=== PATIENT | male | born 1995 | race African-American/Black ===

== ENCOUNTER 2021-12-26 15:39 | Emergency (ER) | payer BC, SELFPAY ==
[2021-12-26 15:40] VITALS: BP 156/95; PULSE 69; RESP 18; TEMP 36.9; O2SAT 99; BMI 19.5
--- NOTE | 2021-12-26 15:53 | RAD_ITS ---
INDICATION: hand pain EXAMINATION/TECHNIQUE: X-RAY - RIGHT XR Hand Min 3 Views 3 VIEWS COMPARISON: None. FINDINGS: SOFT TISSUES: No soft tissue swelling or gas. No radiopaque foreign body. BONES/JOINTS: No acute fracture or subluxation.. Normal alignment. Preservation of the joint space.. No sclerotic or destructive changes observed. RAD/Hand Min 3 Views IMPRESSION: No evidence of acute osseous abnormality Electronically Signed: Wyatt Ledezma MD at 16:18 EDT ,
--- NOTE | 2021-12-26 16:07 | EDS_ITS ---
HPI <SANDER Johnson - Last Filed: 12/26/21 16:29> History of Present Illness Chief Complaint: Upper Extremity Injury Narrative Narrative: 26-year-old male with no significant medical history presents to the emergency department with complaints of right hand pain. Patient states that 2 weeks ago a piece of wood fell on his hand, it continues to hurt when he opens it and closes it, he is here for evaluation. Patient states he did not punch anything, patient denies any other injury. Patient is right-hand dominant. PFSH <SANDER Johnson - Last Filed: 12/26/21 16:29> PFSH Allergy/AdvReac Type Severity Reaction Status Date / Time No Known Allergies Allergy Verified 12/26/21 15:41 Social History Smoking Status: Never smoker ROS <SANDER Johnson - Last Filed: 12/26/21 16:29> ROS ED ROS Narrative Constitutional: Negative for fever, chills, weight loss, weakness Eyes: Negative for vision loss, vision change, double vision ENT: Negative for any sore throat, ear pain, congestion Cardiovascular: Negative for any chest pain, tightness, palpitations, racing heartbeat Respiratory: Negative for any cough, sputum production, hemoptysis, shortness of breath, shortness of breath on exertion, orthopnea Gastrointestinal: Negative for any abdominal pain, nausea, vomiting, diarrhea, constipation, blood in stool, blood in vomit : Negative for any urinary frequency, incontinence, dysuria, retention, blood in urine Muscle skeletal: Negative for any muscle joint pain, stiffness, myalgias, arthralgias, neck pain, back pain. Positive right hand pain Neurological: Negative for any headache, dizziness, syncope, numbness or tingling Skin: Negative for any rashes, lumps, itching, abrasions, lacerations Psychiatric: Negative for any depression, anxiety, stress, suicidal ideation, homicidal ideation Hematologic: Negative for any easy bruising, excessive bruising, easy bleeding Allergies: Negative for any eczema, hives, rash EXAM <SANDER Johnson - Last Filed: 12/26/21 16:29> Physical Exam Narrative Exam Narrative: Vital signs reviewed. Extremities: No peripheral edema, no signs of gross trauma or deformity. Active full range of motion of all extremities. Patient's right hand shows no signs or symptoms of trauma, patient is able to flex and extend the fingers against resistance. +2 radial pulse. Patient has some tenderness along the fourth and fifth metacarpal however there is no instability. Neuro: Cranial nerves II through XII intact, no focal neurological deficits. Skin: Clean dry and intact with no rash, purpura, petechiae, vesicles or pustules. Backslash flank: No CVA tenderness, no midline spinal tenderness, no deformity. Psych: Normal mood and affect. No SI, HI or acute psychosis. Const Vital Signs: 12/26/21 15:40 Temperature 98.5 F Temperature Source Temporal Pulse Rate 69 Respiratory Rate 18 Blood Pressure 156/95 H Blood Pressure Mean 115 Pulse Ox 99 Oxygen Delivery Method Room Air Positive well nourished and well developed General Appearance ED: well developed [facility] <SANDER Johnson - Last Filed: 12/26/21 16:29> [employer] Narrative Medical decision making narrative: Patient appears well, patient appears nontoxic, vital signs are stable. Patient presents the emergency department with 2 weeks of right hand pain after a piece of wood fell on it. Patient's physical examination was grossly unremarkable, there is no external signs of trauma. Patient did receive x-rays of the right hand, this was negative for any acute osseous abnormality. The patient will continue take ibuprofen, Tylenol, to continue to ice and elevate. He is instructed to follow-up as needed. Patient stable for discharge <Dr. Dimitris Dutton DO - Last Filed: 12/26/21 22:45> [employer] Narrative Medical decision making narrative: Attending note: Patient seen and evaluated with clinical research management associate. I perform my own [id number] evaluation. I agree with the plan of work-up. [id number] blunt injury to ring finger right hand 2 weeks ago no from a piece of wood. Swelling has improved. States currently mild pain with movement. Presented for x-ray to rule out fracture. Exam with mild swelling at the proximal phalanx of the ring finger skin intact no deformities full range of motion. Right hand x-ray reviewed by myself and read by radiology shows no acute process. Reassured discharge with outpatient follow-up as needed. Discharge Plan Triage Chief Complaint: Upper Extremity Injury ED Midlevel Provider: Jose Eldridge ED Provider: Dimitris Dutton Dx/Rx/DC Orders Clinical Impression: Hand joint pain, Contusion of finger of right hand Instructions: ED Contusion, Upper Extremity Primary Care Provider: Care Physician,No Primary Referrals: Frankie Anthony MD [STAFF PHYSICIAN] - Care Physician,No Primary [Primary Care Provider] - Print Language: Lebanese Disposition Disposition: Home, Self Care Discharge Date/Time: 12/26/21 16:32
== END 2021-12-26 16:32 | disposition home or self-care (01) ==
PROVIDERS: Emergency Provider Emergency Medicine; Visit Provider Emergency Medicine
DX: M25.541 Pain in joints of right hand (principal); S60.041A Contusion of right ring finger without damage to nail, initial encounter; X58.XXXA Exposure to other specified factors, initial encounter
CPT/HCPCS: 73130; 99282

== ENCOUNTER 2024-03-21 17:45 | Emergency (ER) | payer BC, SELFPAY ==
[2024-03-21 17:46] VITALS: BP 132/93; PULSE 82; RESP 16; TEMP 36.6; O2SAT 95
[2024-03-21 17:48] VITALS: BMI 17.8
[2024-03-21 18:52] LABS: Absolute Lymphocyte Count 1.27 X10^3/uL (0.83-4.51); Absolute Neutrophil Count 3.4 X10^3/uL (2.0-7.7); Basophil# 0.01 X10^3/uL; Basophil% 0.2 % (0-1); Eosinophil# 0.08 X10^3/uL; Eosinophils% 1.5 % (0-5); Hematocrit 39.6 % (40-54); Hemoglobin 12.8 g/dL (13.0-16.5); Lymphocyte # 1.27 X10^3/ul (0.83-4.51); Lymphocyte % 23.4 % (19-41); Mean Corp Hgb Conc 32.3 g/dL (32-36); Mean Corpuscular Hgb 24.4 pg (27.0-32.0); Mean Corpuscular Volume 75.6 fL (80-94); Mean Platelet Vol. 10.5 fl (6.2-12.0); Monocyte# 0.66 X10^3/uL; Monocyte% 12.2 % (0-10); NRBC Flagged by Analyzer 0 % (0-5); Neutrophil # 3.38 X10^3/uL (2.7-7.7); Neutrophil % 62.3 % (47-70); Platelet Count 221 K/mm3 (150-450); RBC Distribution Width CV 14.7 % (11.6-14.6); RBC Distribution Width SD 40.3 fl (35.1-43.9); Red Blood Count 5.24 M/mm3 (4.6-6.2); White Blood Count 5.4 K/mm3 (4.4-11.0)
[2024-03-21 19:03] LABS: Lipase 19 U/L (13-75)
[2024-03-21 19:15] LABS: ALB/GLOB Ratio 1.2 RATIO (0.9-2.4); AST(SGOT) 21 U/L (15-37); Alanine Aminotransfer ALT/SGPT 23 U/L (16-61); Albumin, Serum 3.8 g/dL (3.2-5.0); Alkaline Phosphatase 66 U/L (45-117); Anion Gap 6 (5-15); BUN 14 mg/dL (7-18); BUN/Creat Ratio 13.9 RATIO (10-20); Chloride 103 mmol/L (98-107); Creatinine, Serum 1.01 mg/dL (0.70-1.30); EST Glomerular Filtration Rate 93 mL/min (>60); Est Glom Filt Rate - Afr Amer 113 mL/min (>60); Estimated Creatinine Clearance 86.86 ml/min; Globulin 3.3 g/dL (2.2-4.2); Glucose 90 mg/dL (74-106); Potassium 3.6 mmol/L (3.5-5.1); Protein, Total 7.1 g/dL (6.4-8.2); Sodium Level 137 mmol/L (136-145)
[2024-03-21 19:30] LABS: Bacteria 0 SEEN /hpf (None Seen); Mucous, Urine 0 SEEN /hpf (<or=2+); Red Blood Cells-Urine 0 SEEN /hpf (0-5); Squamous Epithelial Cells - UA 0 SEEN /hpf (0-5); White Blood Cells 0 SEEN /hpf (0-5)
[2024-03-21 19:42] LABS: Color, Urine Yellow (Yellow); Glucose, Dipstick Normal (Normal); Ketone-Dipstick 15 mg/dl (Negative); Leukocyte Esterase-Dipstick 25 /ul (Negative); Nitrite-Dipstick Negative (Negative); Occult Blood-Urine Negative /ul (Negative); Protein-Dipstick 15 mg/dl (Negative); Specific Gravity, Urine 1.005 (1.002-1.030); Urine Clarity Clear (Clear); Urine Urobilinogen 4 mg/dl (Normal)
[2024-03-21 19:45] VITALS: BP 123/82; O2SAT 100
[2024-03-21 19:52] LABS: Urine Bilirubin Dipstick 1 mg/dL (Negative)
[2024-03-21] MEDS: Ondansetron 4 MG/2 ML Vial IV (19:56)
[2024-03-21 21:00] VITALS: BP 125/84; PULSE 89; RESP 18; O2SAT 100
--- NOTE | 2024-03-21 21:26 | ED.VIS.GI ---
HPI HPI - GI History of Present Illness Chief Complaint: Nausea/Vomiting/Diarrhea Narrative Narrative: 28-year-old male presenting with nausea, vomiting, diarrhea which started overnight. Patient does not had a fever at home. He states is not sure why he is vomiting. He states yesterday he had a smoothie and 2 peanut butter sandwiches. He did eat anything out of the ordinary. No exotic travel or eating. He states he does smoke marijuana but is never had problems with vomiting secondary to the marijuana use. He denies any abdominal pain. He denies urinary complaints. He denies cough, congestion, shortness of breath. He denies chills or bodyaches. PFSH PFSH Medical History no medical history Home Medications ?Medication ?Instructions ?Recorded ?Last Taken ?Type ondansetron 4 mg disintegrating 4 mg PO Q8H PRN PRN Nausea #14 tabs 03/21/24 Unknown Rx tablet Allergy/AdvReac Type Severity Reaction Status Date / Time No Known Allergies Allergy Verified 03/21/24 18:53 Surgical History no surgical history Social History Smoking Status: Never smoker [facility] ED Constitutional Constitutional ED: Denies chills, fever(s) or sweats Eyes Eyes: Denies blurry vision or change in vision ENT ENT ED: Denies ear pain or sore throat Cardiovascular Cardiovascular: Denies chest pain, palpitations or racing heartbeat Respiratory/Chest Respiratory/Chest: Denies cough, dyspnea or sputum Gastrointestinal Gastrointestinal: Reports diarrhea, nausea and vomiting; Denies abdominal pain or constipation Genitourinary Genitourinary ED: Denies dysuria, hematuria or urinary frequency Musculoskeletal Musculoskeletal: Denies arthralgias, myalgias or neck pain Integumentary Denies abscess, Abrasions or rash Neurologic Neurologic: Denies headache(s), paresthesias or weakness Psychiatric Psychiatric: Denies anxiety, depression, suicidal ideation or suicidal thoughts Endocrine Endocrinology: Denies polydipsia or polyuria EXAM Physical Exam Const Vital Signs: 03/21/24 17:46 03/21/24 19:45 03/21/24 21:00 Temperature 97.8 F Temperature Source Temporal Pulse Rate 82 89 Respiratory Rate 16 18 Blood Pressure 132/93 H 123/82 H 125/84 H Blood Pressure Mean 106 95 97 Pulse Ox 95 100 100 Oxygen Delivery Method Room Air Room Air Positive well nourished General Appearance ED: NAD; Negative for pallor HEENT Reports moist mucous membranes normocephalic and atraumatic Eyes PERRL and EOMs intact bilaterally Resp normal respiratory effort and clear to auscultation bilaterally Auscultation: Negative for rales, rhonchi or wheezes Cardio regular rate and regular rhythm GI non-tender, non-distended and no masses Palpation: soft Extremity full ROM Neuro CN's II-XII intact bilaterally Sensorium / Orientation: alert Psych mental status grossly normal and thought process normal Skin no wounds General Skin Exam: Negative for jaundice or pallor MDM MDM MDM Narrative Medical decision making narrative: 28-year-old male presenting with nausea, vomiting, diarrhea. He has no other symptoms. Differential includes viral gastroenteritis, dehydration, anemia, electrolyte abnormalities, UTI, pancreatitis, gastritis, GERD, colitis. IV was established. Patient given Zofran 4 mg IV. CBC shows normal white blood cell count of 5.4. Hemoglobin 12.8. Platelets are normal at 221. Renal function and electrolytes within normal limits. LFTs are normal. Lipase is negative. Urinalysis negative for infection. Patient was able to pass a p.o. challenge and feels much better. I will fill a prescription for Zofran for him. The hospital via meds to beds. Discharged in stable condition. Impression: 1. Viral gastroenteritis Lab Data Attestation: I reviewed the patient's lab results. Labs: Laboratory Results - last 24 hr 03/21/24 03/21/24 18:35 19:25 WBC 5.4 RBC 5.24 Hgb 12.8 L Hct 39.6 L MCV 75.6 L MCH 24.4 L MCHC 32.3 RDW Std Deviation 40.3 RDW Coeff of Brian 14.7 H Plt Count 221 MPV 10.5 Immature Gran % (Auto) 0.400 Neut % (Auto) 62.3 Lymph % (Auto) 23.4 [place] % (Auto) 12.2 H Eos % (Auto) 1.5 Baso % (Auto) 0.2 Absolute Neuts (auto) 3.4 Absolute Lymphs (auto) 1.27 Nucleated RBC % 0 Sodium 137 Potassium 3.6 Chloride 103 Carbon Dioxide 28.0 Anion Gap 6 BUN 14 Creatinine 1.01 Estim Creat Clear Calc 86.86 Est GFR (MDRD) Af Amer 113 Est GFR (MDRD) Non-Af 93 BUN/Creatinine Ratio 13.9 Glucose 90 Calcium 9.0 Total Bilirubin 0.60 AST 21 ALT 23 Alkaline Phosphatase 66 Total Protein 7.1 Albumin 3.8 Globulin 3.3 Albumin/Globulin Ratio 1.2 Lipase 19 Urine Color Yellow Urine Clarity Clear Urine pH 7.0 Ur Specific [place] 1.005 Urine Protein 15 H Urine Glucose (UA) Normal Urine Ketones 15 H Urine Occult Blood Negative Urine Nitrite Negative Urine Bilirubin 1 H Urine Urobilinogen 4 H Ur Leukocyte Esterase 25 H Urine RBC 0 SEEN Urine WBC 0 SEEN Ur Squamous Epith Cells 0 SEEN Urine Bacteria 0 SEEN Urine Mucus 0 SEEN Discharge Plan Triage Chief Complaint: Nausea/Vomiting/Diarrhea ED Provider: Ryan Prince Dx/Rx/DC Orders Instructions: ED Gastroenteritis, Viral (Adult) Prescriptions: New ondansetron 4 mg tablet,disintegrating 4 mg PO Q8H PRN PRN (Reason: Nausea) Qty: 14 0RF Stand Alone Forms: ED Work / School Excuse Primary Care Provider: Care Physician,No Primary Referrals: Ines Clark [facility] [Provider Group] - 3-5 Days Care Physician,No Primary [Primary Care Provider] - Print Language: Bulgarian Disposition Disposition: Home, Self Care
[2024-03-21 21:32] VITALS: BP 132/89; PULSE 52; RESP 18; TEMP 36.6; O2SAT 100
== END 2024-03-21 22:15 | disposition home or self-care (01) ==
PROVIDERS: Emergency Provider Student in an Organized Health Care Education/Training Program; Visit Provider Student in an Organized Health Care Education/Training Program
DX: A08.4 Viral intestinal infection, unspecified (principal); F12.90 Cannabis use, unspecified, uncomplicated
CPT/HCPCS: 80053; 81001; 83690; 85025; 96374; 96376; 99283; A4216; J2405

== ENCOUNTER 2024-05-27 08:29 | Emergency (ER) | payer BC, SELFPAY ==
[2024-05-27 08:30] VITALS: BP 122/89; PULSE 69; RESP 16; TEMP 36.7; O2SAT 91; BMI 19.1
--- NOTE | 2024-05-27 08:58 | RAD_ITS ---
STUDY: X-RAY - RIGHT HAND REASON FOR EXAM: Male, 28 years old. 3 week history of pain along the fifth digit. TECHNIQUE: 3 view(s) of the hand. COMPARISON: Comparison is made with prior study dated December 26, 2021. FINDINGS: Normal radiocarpal articulation. Normal distal radioulnar joint. Normal visualized carpal bones. Normal carpal articulations Normal carpometacarpal articulation of the thumb. Normal second through fifth carpometacarpal joints. Normal metacarpi. Normal metacarpophalangeal joint of the thumb. Normal interphalangeal joint of the thumb. Normal proximal and distal phalanges of the thumb. Normal metacarpophalangeal joints of the second through fifth fingers. Normal proximal and distal interphalangeal joints of the second through fifth fingers. Normal phalanges of the second through fifth fingers. The soft tissue structures are unremarkable. RAD/Hand Min 3 Views IMPRESSION: Normal x-ray examination of the hand. Electronically Signed: Harvinder Jose MD at 9:09 EDT ,
--- NOTE | 2024-05-27 09:00 | EX.ED.UPPERE ---
HPI History of Present Illness HPI Narrative: Right hand injury versus dog cage 2 to 3 weeks ago. Complaining of discomfort to the right small finger MCP. No prior history or surgery to this hand. No other complaints. Chief Complaint: Upper Extremity Injury Informant: patient Occured/Mechanism Mechanism/Context: Yes injury and Yes blunt trauma Onset/Context/Timing Onset: Weeks Context: Sudden Onset Timing: Continuous Quality of Pain: Dull and Aching Current Severity: Mild Maximum Severity: Mild Narrative Narrative: Healthy 28-year-old male [id number] injured his right hand versus a dog cage 2 to 3 weeks ago. Still has some discomfort once it x-rayed. No other complaints. Prior similar symptoms: No Recent Illness/Hospitalization: No PFSH PFSH Medical History no medical history no medical history Home Medications ?Medication ?Instructions ?Recorded ?Last Taken ?Type ondansetron 4 mg disintegrating 4 mg PO Q8H PRN PRN Nausea #14 tabs 03/21/24 Unknown Rx tablet Allergy/AdvReac Type Severity Reaction Status Date / Time No Known Allergies Allergy Verified 05/27/24 08:30 Surgical History no surgical history no surgical history Social History Smoking Status: Never smoker ROS ROS ED ROS Narrative Denies recent illness. Constitutional Constitutional ED: Denies fever(s) Eyes Eyes: Denies blurry vision ENT ENT ED: Denies ear pain Cardiovascular Cardiovascular: Denies chest pain Respiratory/Chest Respiratory/Chest: Denies cough Gastrointestinal Gastrointestinal: Denies abdominal pain Genitourinary Genitourinary ED: Denies dysuria Musculoskeletal Musculoskeletal: Denies back pain Integumentary Denies abscess Neurologic Neurologic: Denies headache(s) Psychiatric Psychiatric: Denies anxiety Endocrine Endocrinology: Denies cold intolerance Hematologic/Lymphatic Hematologic/Lymphatic: Denies easy bleeding Allergic/Immunologic Allergic/Immunologic ED: Denies mouth swelling EXAM Physical Exam Narrative Exam Narrative: Well-appearing male vital signs stable afebrile. H EENT exam unremarkable. Lungs clear. Heart regular rate and rhythm no murmur rate about 70. Chest wall ribs nontender. Abdomen soft nontender. Back nontender. Moving all 4 extremities. Neurovascular intact. Specifically right hand mild tenderness MCP right small finger. Full flexion extension all digits of the hand. Skin intact. Very mild tenderness and swelling. At the MCP of the small finger. No infection. No laceration. Wrist and forearm nontender. Otherwise exam normal. Const Vital Signs: 05/27/24 08:30 Temperature 98.1 F Temperature Source Temporal Pulse Rate 69 Respiratory Rate 16 Blood Pressure 122/89 H Blood Pressure Mean 100 Pulse Ox 91 Oxygen Delivery Method Room Air Positive well nourished and well developed; Negative for obese, cachectic, contractures or unkempt General Appearance ED: well developed and NAD; Negative for unkempt, cachectic, contractures, cyanotic or diaphoretic Nutritional Appearance: Negative for cachectic or obese HEENT Reports moist mucous membranes normocephalic and atraumatic; Negative for trauma or tenderness Eyes PERRL and EOMs intact bilaterally Neck full ROM and supple General: Negative for tenderness Lymph Lymphatic: Negative for other Chest Wall inspection of chest normal and palpation of chest normal Chest: Negative for other Resp normal respiratory effort and clear to auscultation bilaterally Effort and Inspection: Negative for pain with movement Auscultation: Negative for rales, rhonchi, wheezes or diminished lung sounds Cardio regular rate, regular rhythm, S1 normal heart sound, S2 normal heart sound and no murmurs Rate: Negative for bradycardia or tachycardic Rhythm: Negative for abnormal rhythm GI non-tender, non-distended and no masses Inspection: Negative for abdominal distention Auscultation: normoactive bowel sounds Palpation: soft; Negative for tender, guarding or rebound tenderness present Back/Spine no CVA tenderness General Back: Negative for CVA tenderness Cervical Spine: Negative for cervical spine tenderness Thoracic Spine / Upper Back: Negative for thoracic spinal tenderness Lumbar Spine / Lower Back: Negative for lumbar spinal tenderness Extremity normal to inspection and full ROM Extremity Narrative: Mild tenderness right hand MCP of the small finger. Full flexion extension. No deformity. Skin intact. Neuro oriented x3, CN's II-XII intact bilaterally, moves all extremities and no focal motor deficits Sensorium / Orientation: alert, oriented to person, oriented to place and oriented to time Motor Exam: strength 5/5 throughout Psych mental status grossly normal Appearance: Negative for unkempt Attitude: No agitated Mood & Affect: Negative for depressed or anxious Skin General Skin Exam: Negative for petechiae Lesions: no lesions Rashes: no rashes Trauma: no lacerations or abrasions MDM MDM MDM Narrative Medical decision making narrative: 28-year-old [id number] male injured his hand 2 to 3 weeks ago getting an x-ray. Exam benign. Normal range of motion. No infection. He did not want a thing for pain. Repeat exam at 915 unchanged. We went over his x-ray is normal. He will be discharged home. Treated as a right hand contusion. Ice and elevate. History & Record Review Discussion w/independent historian: Patient Radiography Diagnostic Testing: Right hand x-ray, 3 views, interpreted by myself shows no acute abnormality. No fracture or dislocation. Discharge Plan Triage Chief Complaint: Upper Extremity Injury ED Provider: Patrick Rivas Dx/Rx/DC Orders Clinical Impression: Contusion of hand Instructions: ED Hand Contusion Prescriptions: No Action ondansetron 4 mg tablet,disintegrating 4 mg PO Q8H PRN PRN (Reason: Nausea) Qty: 14 0RF Primary Care Provider: Care Physician,No Primary Referrals: Care Physician,No Primary [Primary Care Provider] - Activity Restrictions/Additional Instructions: X-ray looks good. Ice and elevate the hand. Motrin for pain and swelling and Tylenol for pain. Should progressively get better if not follow-up to have it reevaluated. Print Language: Croatian Disposition Disposition: Home, Self Care
[2024-05-27 09:19] VITALS: BP 130/57; PULSE 75; RESP 16; TEMP 36.3; O2SAT 97
== END 2024-05-27 09:20 | disposition home or self-care (01) ==
LOC: ED 09:16
PROVIDERS: Emergency Provider Emergency Medicine; Visit Provider Emergency Medicine
DX: S60.221A Contusion of right hand, initial encounter (principal); X58.XXXA Exposure to other specified factors, initial encounter
CPT/HCPCS: 73130; 99282

== ENCOUNTER 2025-04-09 12:51 | Emergency (ER) | payer SELFPAY ==
[2025-04-09 12:51] VITALS: BP 123/81; PULSE 58; RESP 16; TEMP 36.8; O2SAT 100; BMI 18.2
--- OUTSIDE RECORDS SUMMARY | 2025-04-09 14:48 | XMS RPT_ITS | CCD ---
Author Organization [facility] Care Team Providers Care Pipe Fitter Marine Name Role Phone Care Physician, No Primary Primary Care Unava moiraable Patrick Rivas Attending Unavailable Care Physician, No Primary Primary Care Unava ilable Ryan Prince Attending Unavailable Care Physician, No Primary Primary Care Unava ilable Karan Johansen Attending Unavailable Care Physician, No Primary Referring Unava ilable Care Physician, No Primary Referring Unava ilable Care Physician, No Primary Primary Care Tammyva Karan Thompson Attending Unavailable Problems Active Problems Problem Classification Problem Date Documented Da te Episodic/Chronic Administrative/social admission (1 source) Encounter for pre-employment examination; Translations: [Encounter for pre-employment examination] Onset: 11-07-2024 Episodic Other non-traumatic joint disorders (1 source) Hand joint pain; Translations: [Pain in joints of unspecified hand] Episodic Past or Other Problems Problem Classification Problem Date Documented Da te Episodic/Chronic Nausea and vomiting (1 source) Nausea with vomiting, unspecified; Translations: [Nausea with vomiting, unspecified] Onset: 04-06-2024 Episodic Other injuries and conditions due to external causes (1 source) Unspecified injury of right wrist, hand and finger(s), initial encounter; Translations: [Unspecified injury of right wrist, hand and finger(s), initial encounter] Onset: 06-20-2024 Episodic Results Test Name Value Interpretation Reference Range Facility Office Visit Reporton 2024 Office Visit Report [facility] [address] [place] [address] OFFICE VISIT Date of Service: 11/01/24 MR#: [id number] Acct: [id number] Patient: BENY MARCUS Rep #: [id number] : 1995 Provider: SORAYA Horn Age/Sex: 29/M Location: [facility] Status: Signed Intake Vital Signs 05/27/24 08:30 Height 5 ft 10 in Intake Visit Reasons: [employer] Allergies No Known Allergies Allergy (Verified 05/27/24 08:30) Office Procedures [facility] Billing Sheet Testing Breath Alcohol Test Pre-Employment: Yes Pre-Employment Drug Screen: Yes Pre-Employment PE: Yes 11/02/24 1409 Date Karan LIRA Cosigner Signature: Date (if applicable) CC: Normal [facility] Urgent Care Visit Reporton 0 11-01-2024 Urgent Care Visit Report [facility] [address], [address] [place] [address] OFFICE VISIT Date of Service: 11/01/24 MR#: [id number] Acct: [id number] Name: BENY MARCUS Rep #: [id number] : 1995 Provider: SORAYA Horn Age/Sex: 29/M Location: [facility] Status: Signed Intake Vital Signs 05/27/24 08:30 Height 5 ft 10 in Weight: 133 lb BMI 19.1 BP 122/89 H Respiration 16 Pulse 69 Temp 98.1 F Temp Source Temporal Pulse Oximetry (%) 91 Intake Visit Reasons: NEW - [employer] Allergies No Known Allergies Allergy (Verified 05/27/24 08:30) [facility] Medical History (Updated 11/01/24 @ 12:22 by Karan LIRA PA) Physical exam, pre-employment Social History Smoking Status: Never smoker HPI HPI Details: BENY MARCUS, is a 29 M who presents to the office today for Office Procedures Physical Exam Coding PE Coding Pre-employment PE: Yes Coding Level of Care Code No Charge Diagnoses Physical exam, pre-employment Z02.1 Assessment and Plan Assessment and Plan (1) Physical exam, pre-employment: Status: Acute 11/01/24 1223 Date Karan Castellon Signature: Date (if applicable) CC: Normal [facility] Emergency Department Summary on 05-27-2024 Emergency Department Summary [facility] Medical Records Department [address] [place] [address] Emergency Department Summary 05/27/24 MR#: [id number] Acct: [id number] Name: BENY MARCUS Rep #: [id number] : 1995 28 From: Patrick Rivas MD PCP: Care Physician,No Primary Status:PRE ER Location: ED HPI History of Present Illness HPI Narrative: Right hand injury versus dog cage 2 to 3 weeks ago. Complaining of discomfort to the right small finger MCP. No prior history or surgery to this hand. No other complaints. Chief Complaint: Upper Extremity Injury Informant: patient Occured/Mechanism Mechanism/Context: Yes injury and Yes blunt trauma Onset/Context/Timing Onset: Weeks Context: Sudden Onset Timing: Continuous Quality of Pain: Dull and Aching Current Severity: Mild Maximum Severity: Mild Narrative Narrative: Healthy 28-year-old male [id number] injured his right hand versus a dog cage 2 to 3 weeks ago. Still has some discomfort once it x-rayed. No other complaints. Prior similar symptoms: No Recent Illness/Hospitalization: No PFSH PFSH Medical History no medical history no medical history Home Medications ???Medication ???Instructions ???Recorded ???Last Taken ???Type ondansetron 4 mg disintegrating 4 mg PO Q8H PRN PRN Nausea #14 tabs 03/21/24 Unknown Rx tablet Allergy/AdvReac Type Severity Reaction Status Date / Time No Known Allergies Allergy Verified 05/27/24 08:30 Surgical History no surgical history no surgical history Social History Smoking Status: Never smoker ROS ROS ED ROS Narrative Denies recent illness. Constitutional Constitutional ED: Denies fever(s) Eyes Eyes: Denies blurry vision ENT ENT ED: Denies ear pain Cardiovascular Cardiovascular: Denies chest pain Respiratory/Chest Respiratory/Chest: Denies cough Gastrointestinal Gastrointestinal: Denies abdominal pain Genitourinary Genitourinary ED: Denies dysuria Musculoskeletal Musculoskeletal: Denies back pain Integumentary Denies abscess Neurologic Neurologic: Denies headache(s) Psychiatric Psychiatric: Denies anxiety Endocrine Endocrinology: Denies cold intolerance Hematologic/Lymphatic Hematologic/Lymphatic: Denies easy bleeding Allergic/Immunologic Allergic/Immunologic ED: Denies mouth swelling EXAM Physical Exam Narrative Exam Narrative: Well-appearing male vital signs stable afebrile. H EENT exam unremarkable. Lungs clear. Heart regular rate and rhythm no murmur rate about 70. Chest wall ribs nontender. Abdomen soft nontender. Back nontender. Moving all 4 extremities. Neurovascular intact. Specifically right hand mild tenderness MCP right small finger. Full flexion extension all digits of the hand. Skin intact. Very mild tenderness and swelling. At the MCP of the small finger. No infection. No laceration. Wrist and forearm nontender. Otherwise exam normal. Const Vital Signs: 05/27/24 08:30 Temperature 98.1 F Temperature Source Temporal Pulse Rate 69 Respiratory Rate 16 Blood Pressure 122/89 H Blood Pressure Mean 100 Pulse Ox 91 Oxygen Delivery Method Room Air Positive well nourished and well developed; Negative for obese, cachectic, contractures or unkempt General Appearance ED: well developed and NAD; Negative for unkempt, cachectic, contractures, cyanotic or diaphoretic Nutritional Appearance: Negative for cachectic or obese HEENT Reports moist mucous membranes normocephalic and atraumatic; Negative for trauma or tenderness Eyes PERRL and EOMs intact bilaterally Neck full ROM and supple General: Negative for tenderness Lymph Lymphatic: Negative for other Chest Wall inspection of chest normal and palpation of chest normal Chest: Negative for other Resp normal respiratory effort and clear to auscultation bilaterally Effort and Inspection: Negative for pain with movement Auscultation: Negative for rales, rhonchi, wheezes or diminished lung sounds Cardio regular rate, regular rhythm, S1 normal heart sound, S2 normal heart sound and no murmurs Rate: Negative for bradycardia or tachycardic Rhythm: Negative for abnormal rhythm GI non-tender, non-distended and no masses Inspection: Negative for abdominal distention Auscultation: normoactive bowel sounds Palpation: soft; Negative for tender, guarding or rebound tenderness present Back/Spine no CVA tenderness General Back: Negative for CVA tenderness Cervical Spine: Negative for cervical spine tenderness Thoracic Spine / Upper Back: Negative for thoracic spinal tenderness Lumbar Spine / Lower Back: Negative for lumbar spinal tenderness Extremity normal to inspection and full ROM Extremity Narrative: Mild tenderness right hand MCP of the small finger. Fu (more content not included)... Normal [facility] Hand Min 3 Viewson 4 Hand Min 3 Views [facility] Imaging Services [address] [place], [place] [id number] Hand Min 3 Views MR#: [id number] Acct: [id number] Name: BENY MARCUS Rep #: [id number] : 1995 M 28 From: Harvinder garzon MD PCP: Care Physician,No Primary Status: PRE ER Study: Hand Min 3 Views Date of Exam: 05/27/24 Exam# [id number] Ordering Dr: Patrick Rivas MD [id number] STUDY: X-RAY - RIGHT HAND REASON FOR EXAM: Male, 28 years old. 3 week history of pain along the fifth digit. TECHNIQUE: 3 view(s) of the hand. COMPARISON: Comparison is made with prior study dated December 26, 2021. FINDINGS: Normal radiocarpal articulation. Normal distal radioulnar joint. Normal visualized carpal bones. Normal carpal articulations Normal carpometacarpal articulation of the thumb. Normal second through fifth carpometacarpal joints. Normal metacarpi. Normal metacarpophalangeal joint of the thumb. Normal interphalangeal joint of the thumb. Normal proximal and distal phalanges of the thumb. Normal metacarpophalangeal joints of the second through fifth fingers. Normal proximal and distal interphalangeal joints of the second through fifth fingers. Normal phalanges of the second through fifth fingers. The soft tissue structures are unremarkable. RAD/Hand Min 3 Views IMPRESSION: Normal x-ray examination of the hand. Electronically Signed: Harvinder Jose MD at 9:09 EDT , CC: Dr. Patrick Rivas MD; No Primary Care Physician Swimming Pool Maintenance: Signed Normal [facility] CBC W/Diff, Automatedon 03-07 Absolute Lymph 1.27 X10 3/uL Normal 0.83-4.51 [facility] Comment on above: Performed By: #### L 500.4050, L100.0100 #### [facility] [address] [place], [address] Absolute Neut 3.4 X10 3/uL Normal 2.0-7.7 [facility] Comment on above: Performed By: #### L 500.4050, L100.0100 #### [facility] [address] [place], [address] Basophils/100 WBC (Bld) 0.2 % Normal 0-1 [facility] Comment on above: Performed By: #### L 500.4050, L100.0100 #### [facility] [address] [place], [address] Eosinophils/100 WBC (Bld) 1.5 % Normal 0-5 [facility] Comment on above: Performed By: #### L 500.4050, L100.0100 #### [facility] [address] [place], [address] Erythrocyte distribution width (RBC) [Ratio] 14.7 % High 11.6-14.6 [facility] Comment on above: Performed By: #### L 500.4050, L100.0100 #### [facility] [address] [place], [address] Hematocrit (Bld) [Volume fraction] 39.6 % Low 40-54 [facility] Comment on above: Performed By: #### L 500.4050, L100.0100 #### [facility] [address] [place], [address] Hemoglobin (Bld) [Mass/Vol] 12.8 g/dL Low 13.0-16.5 [facility] Comment on above: Performed By: #### L 500.4050, L100.0100 #### [facility] [address] [place], [address] IG% 0.400 Normal 0.0-0.9 [facility] Comment on above: Result Comment: IG% - Immature Granulocytes (promyelocytes, myelocytes and metamyelocytes) > 1% indicates that a LEFT SHIFT is Present. Performed By: #### L 500.4050, L100.0100 #### [facility] [address] [place], [address] Lymphocytes/100 WBC (Bld) 23.4 % Normal 19-41 [facility] Comment on above: Performed By: #### L 500.4050, L100.0100 #### [facility] [address] [place], [address] MCH (RBC) [Entitic mass] 24.4 pg Low 27.0-32.0 [facility] Comment on above: Performed By: #### L 500.4050, L100.0100 #### [facility] [address] [place], [address] MCHC (RBC) [Mass/Vol] 32.3 g/dL Normal 32-36 [facility] Comment on above: Performed By: #### L 500.4050, L100.0100 #### [facility] [address] [place], [address] MCV (RBC) [Entitic vol] 75.6 fL Low 80-94 [facility] Comment on above: Performed By: #### L 500.4050, L100.0100 #### [facility] [address] [place], [address] Monocytes/100 WBC (Bld) 12.2 % High 0-10 [facility] Comment on above: Performed By: #### L 500.4050, L100.0100 #### [facility] [address] [place], [address] Neutrophils/100 WBC (Bld) 62.3 % Normal 47-70 [facility] Comment on above: Performed By: #### L 500.4050, L100.0100 #### [facility] [address] [place], [address] Nucleated RBC (Bld) [#/Vol] 0 10*3/uL Normal 0-5 [facility] Comment on above: Performed By: #### L 500.4050, L100.0100 #### [facility] [address] [place], [address] Platelet mean volume (Bld) [Entitic vol] 10.5 fL Normal 6.2-12.0 [facility] Comment on above: Performed By: #### L 500.4050, L100.0100 #### [facility] [address] [place], [address] Platelets (Bld) [#/Vol] 221 10*3/uL Normal 150-450 [facility] Comment on above: Performed By: #### L 500.4050, L100.0100 #### [facility] [address] [place], [address] RBC (Bld) [#/Vol] 5.24 10*6/uL Normal 4.6-6.2 [facility] Comment on above: Performed By: #### L 500.4050, L100.0100 #### [facility] [address] [place], [address] RDW SD 40.3 fl Normal 35.1-43.9 [facility] Comment on above: Performed By: #### L 500.4050, L100.0100 #### [facility] [address] [place], [address] WBC (Bld) [#/Vol] 5.4 10*3/uL Normal 4.4-11.0 [facility] Comment on above: Performed By: #### L 500.4050, L100.0100 #### [facility] [address] [place], [address] Comprehensive Metabolic [facility] 03-21-2024 Albumin [Mass/Vol] 3.8 g/dL Normal 3.2-5.0 [facility] Comment on above: Performed By: #### L 500.4050, L100.0100 #### [facility] [address] [place], [address] Albumin/Globulin [Mass ratio] 1.2 {ratio} Normal 0.9-2.4 [facility] Comment on above: Performed By: #### L 500.4050, L100.0100 #### [facility] [address] [place], [address] ALK P 66 U/L Normal 45-117 [facility] Comment on above: Performed By: #### L 500.4050, L100.0100 #### [facility] [address] [place], [address] ALT [Catalytic activity/Vol] 23 U/L Normal 16-61 [facility] Comment on above: Performed By: #### L 500.4050, L100.0100 #### [facility] [address] [place], [address] AST [Catalytic activity/Vol] 21 U/L Normal 15-37 [facility] Comment on above: Performed By: #### L 500.4050, L100.0100 #### [facility] [address] [place], [address] Bilirubin [Mass/Vol] 0.60 mg/dL Normal 0.20-1.00 [facility] Comment on above: Result Comment: For patients on eltrombopag therapy, use of Dimension [place] TBIL is not recommended. Performed By: #### L 500.4050, L100.0100 #### [facility] [address] [place], [address] BUN/CRE 13.9 RATIO Normal 10-20 [facility] Comment on above: Performed By: #### L 500.4050, L100.0100 #### [facility] [address] [place], [address] CA,Total 9.0 mg/dL Normal 8.5-10.1 [facility] Comment on above: Performed By: #### L 500.4050, L100.0100 #### [facility] [address] [place], [address] Chloride [Moles/Vol] 103 mmol/L Normal 98-107 [facility] Comment on above: Performed By: #### L 500.4050, L100.0100 #### [facility] [address] [place], [address] CO2 [Moles/Vol] 28.0 mmol/L Normal 21.0-32.0 [facility] Comment on above: Performed By: #### L 500.4050, L100.0100 #### [facility] [address] [place], [address] Creatinine [Mass/Vol] 1.01 mg/dL Normal 0.70-1.30 [facility] Comment on above: Result Comment: The validity of the calculated GFR GFRAA in patients over 70 years has not been determined. Clinical correlation is essential. Performed By: #### L 500.4050, L100.0100 #### [facility] [address] [place], [address] ECRCL 86.86 ml/min Normal [facility] Comment on above: Performed By: #### L 500.4050, L100.0100 #### [facility] [address] [place], [address] EST GFR - AA 113 mL/min Normal >60 [facility] Comment on above: Result Comment: Afri can Lebanese GFR Calc Performed By: #### L 500.4050, L100.0100 #### [facility] [address] [place], [address] GAP 6 Normal 5-15 [facility] Comment on above: Performed By: #### L 500.4050, L100.0100 #### [facility] [address] [place], [address] GFR/1.73 sq M.predicted among non-blacks MDRD (S/P/Bld) [Vol rate/Area] 93 mL/min/{1.73_m2} Normal >60 [facility] Comment on above: Result Comment: Non- GFR Calc Performed By: #### L 500.4050, L100.0100 #### [facility] [address] [place], [address] Globulin (S) [Mass/Vol] 3.3 g/dL Normal 2.2-4.2 [facility] Comment on above: Performed By: #### L 500.4050, L100.0100 #### [facility] [address] [place], [address] Glucose [Mass/Vol] 90 mg/dL Normal 74-106 [facility] Comment on above: Performed By: #### L 500.4050, L100.0100 #### [facility] [address] [place], [address] Potassium [Moles/Vol] 3.6 mmol/L Normal 3.5-5.1 [facility] Comment on above: Performed By: #### L 500.4050, L100.0100 #### [facility] [address] [place], [address] Sodium [Moles/Vol] 137 mmol/L Normal 136-145 [facility] Comment on above: Performed By: #### L 500.4050, L100.0100 #### [facility] [address] [place], [address] T PROT 7.1 g/dL Normal 6.4-8.2 [facility] Comment on above: Performed By: #### L 500.4050, L100.0100 #### [facility] [address] [place], [address] Urea nitrogen [Mass/Vol] 14 mg/dL Normal 7-18 [facility] Comment on above: Performed By: #### L 500.4050, L100.0100 #### [facility] [address] [place], [address] Emergency Department Summary on 03-21-2024 Emergency Department Summary [facility] Records Department [address] [place] [address] Emergency Department Summary 03/21/24 MR#: [id number] Acct: [id number] Name: BENY MARCUS Rep #: [id number] : 1995 28 From: Ryan Prince DO PCP: Care Physician,No Primary Status:REG ER Location: ED HPI HPI - GI History of Present Illness Chief Complaint: Nausea/Vomiting/Diarrhea Narrative Narrative: 28-year-old male presenting with nausea, vomiting, diarrhea which started overnight. Patient does not had a fever at home. He states is not sure why he is vomiting. He states yesterday he had a smoothie and 2 peanut butter sandwiches. He did eat anything out of the ordinary. No exotic travel or eating. He states he does smoke marijuana but is never had problems with vomiting secondary to the marijuana use. He denies any abdominal pain. He denies urinary complaints. He denies cough, congestion, shortness of breath. He denies chills or bodyaches. PFSH PFS Medical History no medical history Home Medications ???Medication ???Instructions ???Recorded ???Last Taken ???Type ondansetron 4 mg disintegrating 4 mg PO Q8H PRN PRN Nausea #14 tabs 03/21/24 Unknown Rx tablet Allergy/AdvReac Type Severity Reaction Status Date / Time No Known Allergies Allergy Verified 03/21/24 18:53 Surgical History no surgical history Social History Smoking Status: Never smoker ROS ROS ED Constitutional Constitutional ED: Denies chills, fever(s) or sweats Eyes Eyes: Denies blurry vision or change in vision ENT ENT ED: Denies ear pain or sore throat Cardiovascular Cardiovascular: Denies chest pain, palpitations or racing heartbeat Respiratory/Chest Respiratory/Chest: Denies cough, dyspnea or sputum Gastrointestinal Gastrointestinal: Reports diarrhea, nausea and vomiting; Denies abdominal pain or constipation Genitourinary Genitourinary ED: Denies dysuria, hematuria or urinary frequency Musculoskeletal Musculoskeletal: Denies arthralgias, myalgias or neck pain Integumentary Denies abscess, Abrasions or rash Neurologic Neurologic: Denies headache(s), paresthesias or weakness Psychiatric Psychiatric: Denies anxiety, depression, suicidal ideation or suicidal thoughts Endocrine Endocrinology: Denies polydipsia or polyuria EXAM Physical Exam Const Vital Signs: 03/21/24 17:46 03/21/24 19:45 03/21/24 21:00 Temperature 97.8 F Temperature Source Temporal Pulse Rate 82 89 Respiratory Rate 16 18 Blood Pressure 132/93 H 123/82 H 125/84 H Blood Pressure Mean 106 95 97 Pulse Ox 95 100 100 Oxygen Delivery Method Room Air Room Air Positive well nourished General Appearance ED: NAD; Negative for pallor HEENT Reports moist mucous membranes normocephalic and atraumatic Eyes PERRL and EOMs intact bilaterally Resp normal respiratory effort and clear to auscultation bilaterally Auscultation: Negative for rales, rhonchi or wheezes Cardio regular rate and regular rhythm GI non-tender, non-distended and no masses Palpation: soft Extremity full ROM Neuro CN's II-XII intact bilaterally Sensorium / Orientation: alert Psych mental status grossly normal and thought process normal Skin no wounds General Skin Exam: Negative for jaundice or pallor MDM MDM MDM Narrative Medical decision making narrative: 28-year-old male presenting with nausea, vomiting, diarrhea. He has no other symptoms. Differential includes viral gastroenteritis, dehydration, anemia, electrolyte abnormalities, UTI, pancreatitis, gastritis, GERD, colitis. IV was established. Patient given Zofran 4 mg IV. CBC shows normal white blood cell count of 5.4. Hemoglobin 12.8. Platelets are normal at 221. Renal function and electrolytes within normal limits. LFTs are normal. Lipase is negative. Urinalysis negative for infection. Patient was able to pass a p.o. challenge and feels much better. I will fill a prescription for Zofran for him. The hospital via meds to beds. Discharged in stable condition. Impression: 1. Viral gastroenteritis Lab Data Attestation: I reviewed the patient's lab results. Labs: Laboratory Results - last 24 hr 03/21/24 03/21/24 18:35 19:25 WBC 5.4 RBC 5.24 Hgb 12.8 L Hct 39.6 L MCV 75.6 L MCH 24.4 L MCHC 32.3 RDW Std Deviation 40.3 RDW Coeff of Brian 14.7 H Plt Count 221 MPV 10.5 Immature Gran % (Auto) 0.400 Neut % (Auto) 62.3 Lymph % (Auto) 23.4 Barbour % (Auto) 12.2 H Eos % (Auto) 1.5 Baso % (Auto) 0.2 Absolute Neuts (auto) 3.4 Absolute Lymphs (auto) 1.27 Nucleated RBC % 0 Sodium 137 Potassium 3.6 Chloride 103 Carbon Dioxide 28.0 Anion Gap 6 BUN 14 Creatinine 1.01 (more content not included)... Normal [facility] Lipaseon 03-21-2024 Lipase [Catalytic activity/Vol] 19 U/L Normal 13-75 [facility] Comment on above: Result Comment: Hunter asencio note: LIPASE revised reference range effective 22. New Lipase methodology. Expected to produce lower values than the previous assay method. NEW Reference Range: 13 - 75 U/L Performed By: #### L 501.2450 #### [facility] [address] [place], [address] Urinalysis, Completeon 03-21 BACTERIA 0 SEEN Normal None Seen [facility] Comment on above: Order Comment: IVY CTOR TO SPECIFY Performed By: #### L 400.0001 #### [facility] [address] [place], [address] EPI,SQUAMOUS 0 SEEN Normal 0-5 [facility] Comment on above: Order Comment: IVY CTOR TO SPECIFY Performed By: #### L 400.0001 #### [facility] [address] [place], [address] Mucus Ql (Urine sed) 0 SEEN Normal [facility] Comment on above: Order Comment: IVY CTOR TO SPECIFY Performed By: #### L 400.0001 #### [facility] [address] [place], [address] RBC 0 SEEN Normal 0-5 [facility] Comment on above: Order Comment: IVY CTOR TO SPECIFY Performed By: #### L 400.0001 #### [facility] [address] [place], [address] WBC 0 SEEN Normal 0-5 [facility] Comment on above: Order Comment: IVY CTOR TO SPECIFY Performed By: #### L 400.0001 #### [facility] [address] [place], [address] CTPCRon 09-13-2018 C. trachomatis Interp See CT Interp N [facility] ([place]) Comment on above: Result Comment: DNA detection by non-culture technique (PCR). Sensitivity testing not available with this method. This organism causes a reportable disease [facility] Interp P Performed By: #### C TPCR, NGPCR1 #### [address] [address] C.trachomatis PCR Positive Negative [facility] ([place]) Comment on above: Result Comment: Yovany acosta (PCR) assay performed on the Jason Cindy 4800 system. Performed By: #### C TPCR, NGPCR1 #### [address] [address] Chlam Source Urine Normal [facility] ([place]) Comment on above: Performed By: #### C TPCR, NGPCR1 #### [address] [address] NGPCRon 09-13-2018 GC PCR Source Urine Normal [facility] ([place]) Comment on above: Performed By: #### C TPCR, NGPCR1 #### [address] [address] N. gonorrhoeae (PCR) Positive Negative [facility] ([place]) Comment on above: Result Comment: Yovany douglasar (PCR) assay performed on the Jason Cindy 4800 System. Performed By: #### C TPCR, NGPCR1 #### [address] [address] N. gonorrhoeae Interp See NG Interp N [facility] ([place]) Comment on above: Result Comment: DNA detection by non-culture technique (PCR). Sensitivity testing not available with this method. This organism causes a reportable disease [facility] See NG Interp P Performed By: #### C TPCR, NGPCR1 #### [address] [address] .Urinalysis Microscopic (AO) on 09-11-2018 RBC (U) [#/Vol] None Seen Normal None Seen [facility] ([place]) Comment on above: Performed By: #### U A, UAMICAO #### [address] [address] UA Squam Epithelial None Seen Normal None Seen [facility] ([place]) Comment on above: Performed By: #### U A, UAMICAO #### [place] [address] UA WBC 15-25 None Seen [facility] ([place]) Comment on above: Performed By: #### U A, UAMICAO #### [address] [address] UAon 09-11-2018 Color (U) Yellow Normal [facility] ([place]) Comment on above: Performed By: #### U A, UAMICAO #### [place] [address] Glucose (U) [Mass/Vol] Negative Normal Negative [facility] ([place]) Comment on above: Performed By: #### U A, UAMICAO #### [place] [address] Ketones Ql (U) Negative Normal Negative [facility] ([place]) Comment on above: Performed By: #### U A, UAMICAO #### [place] [address] UA Appear Clear Normal Clear [facility] ([place] Comment on above: Performed By: #### U A, UAMICAO #### [place] [address] UA Blood Negative Normal Negative [facility] ([place] Comment on above: Performed By: #### U A, UAMICAO #### [place] [address] UA Leuk Est Moderate Negative [facility] ([place]) Comment on above: Performed By: #### U A, UAMICAO #### [place] [id number] UA Nitrite Negative Normal Negative [facility] ([place] Comment on above: Performed By: #### U A, UAMICAO #### [place] [address] UA pH 6.5 Normal [facility] ([place] Comment on above: Performed By: #### U A, UAMICAO #### [place] [address] UA Protein Negative Normal Negative [facility] ([place] Comment on above: Performed By: #### U A, UAMICAO #### [place] [address] UA Spec Grav 1.005 [facility] ([place] Comment on above: Performed By: #### U A, UAMICAO #### [place] [address] UA Specimen Type Clean Catch Normal [facility] ([place] Comment on above: Performed By: #### U A, UAMICAO #### [place] [address] UA Urobilinogen 0.2 E.U./dL Normal [facility] ([place]) Comment on above: Performed By: #### U A, UAMICAO #### [place] [address] Urobilinogen Qn (U) Negative Normal Negative [facility] ([place]) Comment on above: Performed By: #### U A, UAMICAO #### [place] [address] US SCROTUM CONTENTSon 2018 US SCROTUM CONTENTS ORIGINAL US SCROTUM CONTENTS with Duplex Doppler evaluation CLINICAL STATEMENT: Scrotal Pain COMPARISON: None FINDINGS: The size and echogenicity of the testicles are within normal limits and similar bilaterally. No focal nor diffuse abnormalities are seen. Color Doppler flow is seen in both testicles in a symmetric fashion. Spectral waveform analysis of the testicles shows low resistance arterial waveforms on both sides. The right epididymis is mildly prominent compared to the left side with hyperemia. IMPRESSION: Right epididymitis, without orchitis. I have personally reviewed the images of this examination and agree with the resident's findings and interpretation. Interpreted By: Jacinto Flores MD Preliminary Report By: Lee Conte DO Electronically Signed By: Jacinto Flores MD Dictated Date: 09/10/2018 11:07:50 PM Prelim Date: 09/10/2018 11:13:08 PM Sign Date: 09/11/2018 12:04:39 AM Normal [facility] ([place]) Vital Signs Date Time Vital Sign Value Performing Clinician Moises ignacio 12-26-2021 15:40-0400 Body height 180.[address] [facility] Work Phone: 12-26-2021 15:40-0400 Body mass index (BMI) [Ratio] 19.5 kg/m2 [facility] Work Phone: 12-26-2021 15:40-0400 Body temperature 98.5 [degF] [facility] Work Phone: 12-26-2021 15:40-0400 Body weight 63.[address] [facility] Work Phone: 12-26-2021 15:40-0400 Diastolic blood pressure 95 mm[Hg] [facility] Work Phone: 12-26-2021 15:40-0400 Heart rate 69 /min [facility] Work Phone: 12-26-2021 15:40-0400 Respiratory rate 18 /min [facility] Work Phone: 12-26-2021 15:40-0400 SaO2% (BldA) [Mass fraction] 99 % [facility] Work Phone: 12-26-2021 15:40-0400 Systolic blood pressure 156 mm[Hg] [facility] Work Phone: Encounters Encounter Date Encounter Type Care Provider Facility Start: 11-01-2024 End: 11-01-2024 ambulatory No Primary Care Physician Facility:[facility] Start: 05-27-2024 End: 05-27-2024 Emergency department patient visit No Primary Care Physician Facility:[facility] Start: 03-21-2024 End: 03-21-2024 Emergency department patient visit No Primary Care Physician Facility:[facility] Start: 12-26-2021 End: 12-26-2021 Emergency department patient visit [facility] Procedures Date Procedure Procedure Detail Performing Clinician Start: 12-26-2021 Plain x-ray of hand Plan of Treatment Date Care Activity Detail Author Patient Education ED Contusion, Upper Ext remity [facility] Work Phone: Patient referral [facility] Work Phone: Payers Date Payer Category Payer Self-pay [id number] 2024 Unknown [id number] Medicaid SELF PAY INSURANCE [id number] 599 [id number] Unknown SELF PAY INSURANCE [id number] Unknown [id number] Unknown [id number] Unknown [id number] Unknown [id number] Social History Date Type Detail Facility Start: 12-26-[address] [facility] Unknown if ever smoked [facility] Work Phone: Start: 1995 Sex Assigned At Male [facility] Work Phone: Evaluation note Note Date & Type Note Facility Evaluation note No assessment information availa ble [facility] Work Phone: Summary Purpose Family History No Family History Records FoundNo Family History Records Found Advance Directives No Advanced Directives Records Found Advance Directive Response Recorded Date/ Time Living Will No December 26, 2021 3:45pm Power of Instrument Tech No December 26 3:45pm Chief Complaint and Reason for Visit Chief Complaint RIGHT HAND PAIN Additional Source Comments (unrecognized sect ion and content) No Status Records FoundNo Status Records Found INFORMATION SOURCE (unrecogn ized section and content) DATE CREATED AUTHOR 07/31/2019 [facility] ([place]) DATE CREATED AUTHOR AUTHOR'S JASMINE NEGRO 11/10/2024 [facility] Goals (unrecognized section and content) Goals may be documented in a n alternate section FOR RECORDS PERTAINING TO PATIENTS WHO ARE OR HAVE BEEN ENROLLED IN A CHEMICAL DEPENDENCY/SUBSTANCEABUSE PROGRAM, SOME INFORMATION MAY BE OMITTED. This clinical summary was aggregated from multiple sources. Caution should be exercised in using it in the provision of clinical care. This summary normalizes information from multiple sources, and as a consequence, information in this document may materially change the coding, format and clinical context of patient data. In addition, data may be omitted in some cases. CLINICAL DECISIONS SHOULD BE BASED ON THE PRIMARY CLINICAL RECORDS. [facility]. provides no warranty or guarantee of the accuracy or completeness of information in this document.
== END 2025-04-09 14:37 | disposition left against medical advice (07) ==
LOC: ED 14:46
DX: Z00.00 Encounter for general adult medical examination without abnormal findings (principal)

== ENCOUNTER 2025-09-06 10:45 | Emergency (ER) | payer SELFPAY ==
[2025-09-06 10:46] VITALS: BP 131/89; PULSE 80; RESP 18; TEMP 36.9; O2SAT 100; BMI 18.2
--- NOTE | 2025-09-06 11:14 | RAD_ITS ---
PROCEDURE: CHEST 1 VIEW (PORTABLE) 09/06/2025 REASON FOR EXAM: COUGH TECHNIQUE: Frontal view of the chest. COMPARISON: None. FINDINGS: LUNGS AND PLEURA: The lungs are clear. No pleural effusion or pneumothorax. HEART AND MEDIASTINUM: The heart size and mediastinal contours are normal. BONES: No acute osseous abnormality. RAD/Chest 1 View (Portable) IMPRESSION: No Acute Findings. Reading Location: [id number]
--- NOTE | 2025-09-06 11:15 | EX.ED.DYSGE1 ---
HPI History of Present Illness Chief Complaint: Nausea/Vomiting Informant: patient and family Narrative Narrative: 30-year-old male presenting to the emergency room with hiccups and vomiting. Patient states that he has been diagnosed with influenza A. He got sick on Thursday. He states yesterday he had vomiting and has developed hiccups. He denies any muscle cramps. He notes occasional nausea. He notes continued cough and fevers. He notes decreased urination. [facility] Medical History Physical exam, pre-employment Home Medications ?Medication ?Instructions ?Recorded ?Last Taken ?Type ondansetron 4 mg disintegrating 4 mg PO Q8H PRN PRN Nausea #14 tabs 03/21/24 Unknown Rx tablet ondansetron 4 mg disintegrating 4 mg PO Q6H PRN PRN Nausea #15 tabs 09/06/25 Unknown Rx tablet Allergy/AdvReac Type Severity Reaction Status Date / Time No Known Allergies Allergy Verified 09/06/25 10:46 Social History Smoking Status: Never smoker ROS ROS ED Constitutional Constitutional ED: Reports chills, fever(s) and sweats; Denies weight loss Eyes Eyes: Denies change in vision or diplopia ENT ENT ED: Reports rhinorrhea and sore throat; Denies ear pain Cardiovascular Cardiovascular: Denies chest pain, orthopnea, palpitations or racing heartbeat Respiratory/Chest Respiratory/Chest: Reports cough and sputum; Denies dyspnea or orthopnea Gastrointestinal Gastrointestinal: Reports nausea and vomiting; Denies abdominal pain or diarrhea Genitourinary Genitourinary ED: Denies dysuria, hematuria or urinary frequency Musculoskeletal Musculoskeletal: Reports myalgias; Denies arthralgias Integumentary Denies abscess or rash Neurologic Neurologic: Reports headache(s); Denies weakness Psychiatric Psychiatric: Denies anxiety, depression, suicidal ideation or suicidal thoughts Endocrine Endocrinology: Denies polydipsia, polyphagia or polyuria Allergic/Immunologic Allergic/Immunologic ED: Denies mouth swelling, tongue swelling or urticaria EXAM Physical Exam Narrative Exam Narrative: Frequent hiccups Const Vital Signs: 09/06/25 10:46 09/06/25 12:44 Temperature 98.4 F Temperature Source Temporal Pulse Rate 80 78 Respiratory Rate 18 16 Blood Pressure 131/89 H 121/87 H Blood Pressure Mean 103 98 Pulse Ox 100 98 Oxygen Delivery Method Room Air Room Air Positive well nourished and well developed General Appearance ED: well developed HEENT Reports normocephalic, head/scalp atraumatic and moist mucous membranes Eyes PERRL and EOMs intact bilaterally Eyes Narrative: Mild turbinate edema/rhinorrhea Neck no lymphadenopathy, supple and no JVD Resp normal respiratory effort and clear to auscultation bilaterally Cardio regular rate, regular rhythm and no murmurs GI normal to inspection, nondistended, normoactive bowel sounds and non-tender Palpation: soft Back/Spine no CVA tenderness and normal ROM Extremity normal to inspection General Extremety ED: Negative for edema General Extremity: Negative for edema Neuro oriented x3 and CN's II-XII intact bilaterally Sensorium / Orientation: alert Motor Exam: strength 5/5 throughout Psych mental status grossly normal Mood & Affect: Negative for depressed or tearful Skin no rashes or lesions noted and no wounds MDM MDM MDM Narrative Medical decision making narrative: Differential diagnosis includes dehydration electrolyte abnormalities acute kidney injury pneumonia pleural effusion viral syndrome Patient is influenza A positive. He received a liter of IV fluids as well as Zofran. His hiccups and vomiting had improved and started to return with hiccups. He is given additional dose of Zofran. CBC shows a white count 7.5 hemoglobin 13.1 platelet count of 128. CMP within normal limits glucose 110 BUN of 14 creatinine of 1. My independent interpretation of the chest x-ray is no acute process. Clinically I will write for the patient to have Zofran to help with his vomiting would encourage oral hydration. He appears stable at this point. Continued antipyretics as needed return if worsening or concerns History & Record Review Discussion w/independent historian: Patient and Significant other Lab Data Attestation: I reviewed the patient's lab results. Labs: Laboratory Results - last 24 hr 09/06/25 11:42 WBC 7.5 RBC 5.41 Hgb 13.1 Hct 40.0 MCV 73.9 L MCH 24.2 L MCHC 32.8 RDW Std Deviation 37.7 RDW Coeff of Brian 14.2 Plt Count 128 L MPV 10.3 Immature Gran % (Auto) 0.300 Neut % (Auto) 71.7 H Lymph % (Auto) 5.8 L [place] % (Auto) 4.4 Eos % (Auto) 17.3 H Baso % (Auto) 0.5 Absolute Neuts (auto) 5.4 Absolute Lymphs (auto) 0.43 L Nucleated RBC % 0 Differential Comment COMMENT Sodium 137 Potassium 3.8 Chloride 101 Carbon Dioxide 25.0 Anion Gap 11 BUN 14 Creatinine 1.00 Estim Creat Clear Calc 88.01 Est GFR (MDRD) Non-Af 104 BUN/Creatinine Ratio 13.9 Glucose 110 H Calcium 9.1 Total Bilirubin 0.34 AST 25 ALT 20 Alkaline Phosphatase 65 Total Protein 7.2 Albumin 4.3 Globulin 2.8 Albumin/Globulin Ratio 1.5 Radiography Diagnostic Testing: Clinical Impression(s) from Imaging Studies Chest X-Ray 09/06/25 11:14 IMPRESSION: No Acute Findings. Reading Location: [facility] Discharge Plan Triage Chief Complaint: Nausea/Vomiting ED Provider: Jono Edmondson Dx/Rx/DC Orders Clinical Impression: Influenza A, Nausea and vomiting, Hiccups Instructions: ED Influenza (Adult), ED Vomiting (Adult), ED Hiccups Prescriptions: New ondansetron 4 mg tablet,disintegrating 4 mg PO Q6H PRN PRN (Reason: Nausea) Qty: 15 0RF No Action ondansetron 4 mg tablet,disintegrating 4 mg PO Q8H PRN PRN (Reason: Nausea) Qty: 14 0RF Primary Care Provider: Care Physician,No Primary Referrals: Care Physician,No Primary [Primary Care Provider, Medical] Print Language: Hong Konger Disposition Disposition: Home, Self Care
[2025-09-06] MEDS: 0.9% Normal Saline (1000mL) 1,000 ML 1000 ML IV (11:44)
--- OUTSIDE RECORDS SUMMARY | 2025-09-06 11:45 | XMS RPT_ITS | CCD ---
Author Organization [facility] Care Team Providers Care Wearing Apparel Assembler Name Role Phone Care Physician, No Primary Primary Care Provider Unavailable Provider, Ed Physician Emergency Provider Unavai lable Unavailable Primary Care Provider UnavailMELVA Watts Attending Unavailable Care Physician, No Primary Primary Care Unava ilable Karan Johansen Attending Unavailable Care Physician, No Primary Referring Unava ilable Care Physician, No Primary Primary Care Unava ilable Patrick Rivas Attending Unavailable Care Physician, No Primary Primary Care Unava ilable Provider, Ed Physician Attending Unavailab le Care Physician, No Primary Referring Unava ilable Care Physician, No Primary Primary Care Unava ilable Karan Johansen Attending Unavailable Medications Current Medications Medication Drug Class(es) Dates Sig (Normalized) Sig (Original) cephalexin 500 mg oral capsule (1 source) Cephalosporin Antibacterial Start: 04-09-2025 End: 04-16-2025 take 1 capsule by mouth four times daily cephALEXin (KEFLEX) 500 mg capsule Indications: Dog bite, initial encounter , Arm wound, left, initial encounter Take 1 capsule by mouth four times daily for 7 days. 28 capsule 04/09/2025 04/16/2025 Active mupirocin 0.02 mg/mg topical ointment (1 source) RNA Synthetase Inhibitor Antibacterial Start: 04-09-2025 End: 04-14-2025 mupirocin (BACTROBAN) 2 % ointment Indications: Dog bite, initial encounter , Arm wound, left, initial encounter Apply 1 application to affected area three times a day for 5 days. 30 g 04/09/2025 04/14/2025 Active ondansetron 4 mg disintegrating oral tablet (1 source) Serotonin-3 Receptor Antagonist Start: 03-21-2024 take 1 tablet by mouth every eight hours as needed for nausea Ondansetron 4 mg tablet,disintegra ting Active 4 mg PO EVERY 8 HOURS NEEDED as needed for Nausea 14 0 March 21, 2024 12:00am Problems Active Problems Problem Classification Problem Date Documented Da te Episodic/Chronic E Codes: Natural/environment (2 sources) Dog bite - wound; Translations: [Bitten by dog, initial encounter] Onset: 04-09-2025 04-09-2025 Episodic Open wounds of extremities (2 sources) Injury of upper extremity; Translations: [Unspecified open wound of left upper arm, initial encounter] Onset: 04-09-2025 04-09-2025 Episodic Other non-traumatic joint disorders (2 sources) Hand joint pain; Translations: [Pain in joints of unspecified hand] 01-03-2022 Episodic Superficial injury; contusion (2 sources) Contusion of hand; Translations: [Contusion of unspecified hand, initial encounter] 06-04-2024 Episodic Past or Other Problems Problem Classification Problem Date Documented Da te Episodic/Chronic Administrative/social admission (2 sources) Patient encounter status; Translations: [Encounter for pre-employment examination] Onset: 11-07-2024 11-01-2024 Episodic Other injuries and conditions due to external causes (1 source) Unspecified injury of right wrist, hand and finger(s), initial encounter; Translations: [Unspecified injury of right wrist, hand and finger(s), initial encounter] Onset: 06-20-2024 Episodic Results Test Name Value Interpretation Reference Range Facility [facility] 04-09-2025 CNOV Office Visit (WOUCA) -------- TUSHAR MARCUS ([id number]) 1995 M Date Time Provider Department 04/09/25 1:30 PM MELVA ABDUL During your visit today, we recorded the following information about you: Temperature Pulse Respiration Blood pressure 98.3 degrees 64/minute 16/minute 118/64 Weight 57.9 kg Melva Abdul MD 04/09/2025 1:45 PM Signed Animal Bite You have been treated for an animal bite. The animal that bit you IS VERY UNLIKELY to give you rabies. Treatment begins with fully cleansing the wound. Stitches sometimes go in areas where a large scar is a cosmetic problem. This could be the face, for example. If your wounds are sutured, your risk of infection may be higher. The doctor may choose to close the wound. This is often because the cosmetic problems are worth the higher infection risk. Antibiotics are not generally proven to prevent infection. However, in some cases, your doctor may decide to give you antibiotics. This depends on the type of animal and where the bite is. It also depends on whether the wound is being sutured (stitched). One concern with an animal bite is infection. Symptoms of infection include redness and increasing pain. They also include pus or discharge and swelling. Fever (temperature higher than 100.4?F / 38?C) may also be present. Follow up with your doctor, return here or go to the nearest Emergency Department in 2-3 days for a wound re-check. YOU SHOULD SEEK MEDICAL ATTENTION IMMEDIATELY, EITHER HERE OR AT THE NEAREST EMERGENCY DEPARTMENT, IF ANY OF THE FOLLOWING OCCURS: Redness, pain, pus or swelling. Warmth of the area around the bite. Red streaks, fever (temperature higher than 100.4?F / 38?C) or any other signs of infection. For any other new symptoms or concerns. For pain that gets worse or is not controlled by pain medicine. Melva Abdul MD 04/09/2025 3:01 PM Signed [facility] Pia Marcus is a 29 year old male. Patient presents with: dog bite to left shoulder: X 1 day-brothers dog Pt here with 1 day hx of a dog bite to his left upper arm now open wound wants evaluated also needs a tetanus booster Review of Systems Constitutional: Negative for chills, fatigue and fever. Musculoskeletal: Negative for arthralgias and myalgias. Skin: Positive for wound. Neurological: Negative for weakness and numbness. Objective BP 118/64 Pulse 64 Temp 36.8 ?C (98.3 ?F) (Tympanic) Resp 16 Wt 57.9 kg (127 lb 10.3 oz) SpO2 100% Physical Exam Vitals and nursing note reviewed. Constitutional: Appearance: Normal appearance. He is not ill-appearing. Cardiovascular: Pulses: Normal pulses. Musculoskeletal: General: No deformity. Normal range of motion. Skin: Findings: No bruising or erythema. Comments: Left deltoid area: 1 open wound void of skin and 3 small abrasions Neurological: Mental Status: He is alert. Sensory: No sensory deficit. Motor: No weakness. Coordination: Coordination normal. Deep Tendon Reflexes: Reflexes normal. {ASSESSMENT/PLAN: 1. Dog bite, initial encounter - ICD9: 879.8, E906.0, ICD10: W54.0XXA (primary diagnosis) Wound not sutureable - TDAP VACCINE, AGE 7+ YR (ADACEL, BOOSTRIX) - CEPHALEXIN 500 MG CAPSULE - MUPIROCIN 2 % TOPICAL OINTMENT 2. Arm wound, left, initial encounter - ICD9: 884.0, ICD10: S41.102A Return here as needed - TDAP VACCINE, AGE 7+ YR (ADACEL, BOOSTRIX) - CEPHALEXIN 500 MG CAPSULE - MUPIROCIN 2 % TOPICAL OINTMENT Melva Abdul MD History and Record Review Clinical information obtained from an independent historian. History obtained from or confirmed by: friend. Differential Diagnoses - dog bite is more likely for the following reason(s): suggested by HANDP Disposition The patient was discharged. Procedures Allergies As of Date: 04/09/2025 (Not on File) Date Reviewed: 04/09/2025 Reviewed by: Alia Cutler LPN - Fully Assessed Reason for Visit: dog bite to left shoulder [Other] Cmt: X 1 day-brothers dog Primary Visit Diagnosis:Dog bite, initial encounter [W54.0XXA] Other Visit Diagnosis:Arm wound, left, initial encounter [S41.102A] Order(s):TDAP VACCINE, AGE 7+ YR (ADACEL, BOOSTRIX) [03348IAM] Order #: [id number] cephALEXin (KEFLEX) 500 mg capsuleTake 1 capsule by mouth four times daily for 7 days.Disp: 28 capsuleRfl: 0 mupirocin (BACTROBAN) 2 % ointmentApply 1 application to affected area three times a day for 5 days.Disp: 30 gRfl: 0 Prescriptions as of 04/09/2025 - cephALEXin (KEFLEX) 500 mg capsule Take 1 capsule by mouth four times daily for 7 days. - mupirocin (BACTROBAN) 2 % ointment Apply 1 application to affected area three times a day for 5 days. Problem List As Of Date: 04/09/2025 (None) Other instructions from your clinician: Animal Bite You have been treated for an animal bite. The animal that bit you IS VERY (more content not included)... Normal [facility] Office Visit Reporton 2024 Office Visit Report [facility] [address] [place] [address] OFFICE VISIT Date of Service: 11/01/24 MR#: [id number] Acct: [id number] Patient: TUSHAR MARCUS Rep #: [id number] : 1995 Provider: SORAYA Horn Age/Sex: 29/M Location: [facility] Status: Signed Intake Vital Signs 05/27/24 08:30 Height 5 ft 10 in Intake Visit Reasons: [employer] Allergies No Known Allergies Allergy (Verified 05/27/24 08:30) Office Procedures [facility] Billing Sheet Testing Breath Alcohol Test Pre-Employment: Yes Pre-Employment Drug Screen: Yes Pre-Employment PE: Yes 11/02/24 1409 Date Karan LIRA Cosigner Signature: Date (if applicable) CC: Normal [facility] Urgent Care Visit Reporton 0 11-01-2024 Urgent Care Visit Report [facility] [address], [address] [place] [address] OFFICE VISIT Date of Service: 11/01/24 MR#: [id number] Acct: [id number] Name: TUSHAR MARCUS Rep #: [id number] : 1995 Provider: SORAYA Horn Age/Sex: 29/M Location: [facility] Status: Signed Intake Vital Signs 05/27/24 08:30 Height 5 ft 10 in Weight: 133 lb BMI 19.1 BP 122/89 H Respiration 16 Pulse 69 Temp 98.1 F Temp Source Temporal Pulse Oximetry (%) 91 Intake Visit Reasons: NEW - AYDEE [employer] PRE EMPLY PHYSICAL Allergies No Known Allergies Allergy (Verified 05/27/24 08:30) [facility] Medical History (Updated 11/01/24 @ 12:22 by SORAYA Gonzalez) Physical exam, pre-employment Social History Smoking Status: Never smoker HPI HPI Details: TUSHAR MARCUS, is a 29 M who presents to the office today for Office Procedures Physical Exam Coding PE Coding Pre-employment PE: Yes Coding Level of Care Code No Charge Diagnoses Physical exam, pre-employment Z02.1 Assessment and Plan Assessment and Plan (1) Physical exam, pre-employment: Status: Acute 11/01/24 1223 Date Karan LIRA Cosigner Signature: Date (if applicable) CC: Normal [facility] Emergency Department Summary on 05-27-2024 Emergency Department Summary [facility] Medical Records Department [address] [place] [address] Emergency Department Summary 05/27/24 MR#: [id number] Acct: [id number] Name: TUSHAR MARCUS Rep #: [id number] : 1995 28 From: Patrick Rivas MD [...] Severity: Mild Narrative Narrative: Healthy 28-year-old male [id number] injured his right hand versus a dog [...] finger. Fu (more content not included)... Normal [facility] Hand Min 3 Viewson 4 Hand Min 3 Views [facility] Imaging Services [address] [place], [place] [address] Hand Min 3 Views MR#: [id number] Acct: [id number] Name: TUSHAR MARCUS Rep #: [id number] : 1995 M 28 From: Harvinder garzon MD PCP: Care Physician,No Primary Status: PRE ER Study: Hand Min 3 Views Date of Exam: 05/27/24 Exam# [id number] Ordering Dr: Patrick Rivas MD [id number] STUDY: X-RAY - RIGHT HAND REASON FOR [...] Signed: Harvinder Jose MD at 9:09 EDT Reading Location ID and State: [facility] / [place] , Service support , CC: Dr. Patrick Rivas MD; No Primary Care Physician Bone Char Kiln Tender: Signed Normal [facility] CTPCRon 09-13-2018 C. trachomatis Interp See CT Interp N [facility] ([place]) Comment on above: Result Comment: DNA detection by non-culture technique (PCR). Sensitivity testing not available with this method. This organism causes a reportable disease Results have been reported to the [place] [facility] See CT Interp P Performed By: #### C TPCR, NGPCR1 #### [place] [id number] [place] [address] C.trachomatis PCR Positive Negative [facility] ([place]) Comment on above: Result Comment: Yovany acosta (PCR) assay performed on the Jason Cindy 4800 system. Performed By: #### C TPCR, NGPCR1 #### [address] [address] Chlam Source Urine Normal [facility] ([place]) Comment on above: Performed By: #### C TPCR, NGPCR1 #### [address] [address] NGPCRon 09-13-2018 GC PCR Source Urine Normal [facility] ([place]) Comment on above: Performed By: #### C TPCR, NGPCR1 #### [place] [address] N. gonorrhoeae (PCR) Positive Negative [facility] ([place]) Comment on above: Result Comment: Mole cular (PCR) assay performed on the Jason Cindy 4800 System. Performed By: #### C TPCR, NGPCR1 #### [place] [address] N. gonorrhoeae Interp See NG Interp N [facility] ([place]) Comment on above: Result Comment: DNA detection by non-culture technique (PCR). Sensitivity testing not available with this method. This organism causes a reportable disease Results have been reported to the [place] [facility] See NG Interp P Performed By: #### C TPCR, NGPCR1 #### [place] [address] .Urinalysis Microscopic (AO) on 09-11-2018 RBC (U) [#/Vol] None Seen Normal None Seen [facility] ([place]) Comment on above: Performed By: #### U A, UAMICAO #### [place] [address] UA Squam Epithelial None Seen Normal None Seen [facility] ([place]) Comment on above: Performed By: #### U A, UAMICAO #### [place] [address] UA WBC 15-25 None Seen [facility] ([place]) Comment on above: Performed By: #### U A, UAMICAO #### [place] [address] UAon 09-11-2018 Color (U) Yellow Normal [facility] ([place]) Comment on above: Performed By: #### U A, UAMICAO #### [place] [address] Glucose (U) [Mass/Vol] Negative Normal Negative [facility] ([place]) Comment on above: Performed By: #### U A, UAMICAO #### [place] [address] Ketones Ql (U) Negative Normal [facility] ([place]) Comment on above: Performed By: #### U A, UAMICAO #### [place] [address] UA Appear Clear Normal Clear [facility] ([place]) Comment on above: Performed By: #### U A, UAMICAO #### [place] [address] UA Blood Negative Normal Negative [facility] ([place]) Comment on above: Performed By: #### U A, UAMICAO #### [place] [address] UA Leuk Est Moderate Negative [facility] ([place]) Comment on above: Performed By: #### U A, UAMICAO #### [place] [address] UA Nitrite Negative Normal Negative [facility] ([place]) Comment on above: Performed By: #### U A, UAMICAO #### [place] [address] UA pH 6.5 Normal [facility] ([place]) Comment on above: Performed By: #### U A, UAMICAO #### [place] [address] UA Protein Negative Normal Negative [facility] ([place]) Comment on above: Performed By: #### U A, UAMICAO #### [place] [address] UA Spec Grav 1.005 [facility] ([place]) Comment on above: Performed By: #### U A, UAMICAO #### [place] [address] UA Specimen Type Clean Catch Normal [facility] ([place]) Comment on above: Performed By: #### U A, UAMICAO #### [facility] [address] [place] [address] UA Urobilinogen 0.2 E.U./dL Normal [facility] ([place]) Comment on above: Performed By: #### U A, UAMICAO #### [facility] [address] [place] [address] Urobilinogen Qn (U) Negative Normal Negative [facility] ([place]) Comment on above: Performed By: #### U A, UAMICAO #### [facility] [address] [place], [place] [address] US SCROTUM CONTENTSon 2018 US SCROTUM CONTENTS [...] PM Sign Date: 09/11/2018 12:04:39 AM Normal [facility] ([place]) Vital Signs Date Time Vital Sign Value Performing Clinician Facility 04-09-2025 13:36-0400 Body temperature 98.29 [degF] Melva Abdul MD Work Phone: [facility] 04-09-2025 13:36-0400 Body weight 57.9 kg Melva Abdul MD Work Phone: [facility] 04-09-2025 13:36-0400 Diastolic blood pressure 64 mm[Hg] Melva Abdul MD Work Phone: [facility] 04-09-2025 13:36-0400 Heart rate 64 /min Melva Abdul MD Work Phone: [facility] 04-09-2025 13:36-0400 Respiratory rate 16 /min Melva Abdul MD Work Phone: [facility] 04-09-2025 13:36-0400 SaO2% (BldA) [Mass fraction] 100 % Melva Abdul MD Work Phone: [facility] 04-09-2025 13:36-0400 Systolic blood pressure 118 mm[Hg] Melva Abdul MD Work Phone: [facility] 04-09-2025 12:51-0400 Body height 177.8 cm No Primary Care Physician [facility] 04-09-2025 12:51-0400 Body mass index (BMI) [Ratio] 18.2 kg/m2 No Primary Care Physician [facility] 04-09-2025 12:51-0400 Body temperature 98.2 [degF] No Primary Care Physician [facility] 04-09-2025 12:51-0400 Body weight 57.65 kg No Primary Care Physician [facility] 04-09-2025 12:51-0400 Diastolic blood pressure 81 mm[Hg] No Primary Care Physician [facility] 04-09-2025 12:51-0400 Heart rate 58 /min No Primary Care Physician [facility] 04-09-2025 12:51-0400 Respiratory rate 16 /min No Primary Care Physician [facility] 04-09-2025 12:51-0400 SaO2% (BldA) [Mass fraction] 100 % No Primary Care Physician [facility] 04-09-2025 12:51-0400 Systolic blood pressure 123 mm[Hg] No Primary Care Physician [facility] 12-26-2021 15:40-0400 Body height 180.34 cm [facility] Work Phone: 12-26-2021 15:40-0400 Body mass index (BMI) [Ratio] 19.5 kg/m2 [facility] Work Phone: 04-21-2022 15:40-0400 Body temperature 98.5 [degF] [facility] Work Phone: 12-26-2021 15:40-0400 Body weight 63.5 kg [facility] Work Phone: 12-26-2021 15:40-0400 Diastolic blood pressure 95 mm[Hg] [facility] Work Phone: 12-26-2021 15:40-0400 Heart rate 69 /min [facility] Work Phone: 12-26-2021 15:40-0400 Respiratory rate 18 /min [facility] Work Phone: 12-26-2021 15:40-0400 SaO2% (BldA) [Mass fraction] 99 % [facility] Work Phone: 12-26-2021 15:40-0400 Systolic blood pressure 156 mm[Hg] [facility] Work Phone: Encounters Encounter Date Encounter Type Care Provider Facility Start: 04-14-2025 Encounter for genera l adult medical examination without abnormal findings Ed Physician Provider [facility] Start: 04-09-2025 End: 04-09-2025 ambulatory MELVA ABDUL Facility:[facility] Start: 04-09-2025 End: 04-09-2025 Office outpatient new 45 minutes Melva Abdul MD Work Phone: [facility] Comment on above: Dog bite, initial en counter (Primary Dx); Arm wound, left, initial encounter Start: 04-09-2025 End: 04-09-2025 Emergency department patient visit No Primary Care Physician -Emergency Department Work Phone: Start: 11-01-2024 End: 11-01-2024 ambulatory No Primary Care Physician Facility:[facility] Start: 05-27-2024 End: 05-27-2024 Emergency department patient visit No Primary Care Physician Facility:[facility] Start: 12-26-2021 End: 12-26-2021 Emergency department patient visit [facility]-Emergency Department Procedures Date Procedure Procedure Detail Performing Clinician Start: 04-21-2022 Plain x-ray of hand Plan of Treatment Date Care Activity Detail Author Start: 04-09-2035 Urine microalbumin profile DTaP,Tdap,Td Vaccine (2 - Td or Tdap) [facility] Start: 05-08-2025 Influenza vaccination Influenza Vacc ine (#1) [facility] Start: 2014 Hepatitis B Vaccine (1 of 3 - 19+ 3-dose series) Hepatitis B Vaccine (1 of 3 - 19+ 3-dose series) [facility] Start: 2013 Anxiety Screening Anxiety Screening [facility] Start: 2013 Depression Screening Depression Scre ening [facility] Start: 2013 Hepatitis C screening Hepatitis C Sc reening [facility] Start: 2013 HIV screening HIV Screening [facility] Patient Education ED Contusion, Upper Extremity [facility] Work Phone: Patient referral [facility] Work Phone: Immunizations Immunization Date Immunization Notes Care Provider Fa cility 04-09-2025 tetanus toxoid, redu raymond diphtheria toxoid, and acellular pertussis vaccine, adsorbed Melva Abdul MD Work Phone: [facility] Payers Date Payer Category Payer Self-pay [id number] 2024 Unknown [id number] Medicaid [id number] Unknown SELF PAY INSURANCE [id number] Unknown [id number] Unknown [id number] Unknown [id number] [id number] Unknown [id number] Social History Date Type Detail Facility Start: 12-26-2021 Tobacco smoking stat [facility] Unknown if ever smoked [facility] Work Phone: Start: 1995 Sex Assigned At Male [facility] Start: 05-27-2024 [facility] Start: 1995 Sex assigned at Not on file [facility] Gender identity Not on file [facility] in Progress note 04-09-2025 Note Date & Type Note Facility 04-09-2025 Note HNO ID: [id number] Author: MELVA ABDUL MD Service: ? Author Type: Physician Type: Progress Notes Filed: 04/09/2025 15:01 Note Text: [facility] Pia Marcus is a 29 year old male. Patient presents with: dog bite to left shoulder: X 1 day-brothers dog Pt here with 1 day hx of a dog bite to his left upper arm now open wound wants evaluated also needs a tetanus booster Review of Systems Constitutional: Negative for chills, fatigue and fever. Musculoskeletal: Negative for arthralgias and myalgias. Skin: Positive for wound. Neurological: Negative for weakness and numbness. Objective BP 118/64 Pulse 64 Temp 36.8 ?C (98.3 ?F) (Tympanic) Resp 16 Wt 57.9 kg (127 lb 10.3 oz) SpO2 100% Physical Exam Vitals and nursing note reviewed. Constitutional: Appearance: Normal appearance. He is not ill-appearing. Cardiovascular: Pulses: Normal pulses. Musculoskeletal: General: No deformity. Normal range of motion. Skin: Findings: No bruising or erythema. Comments: Left deltoid area: 1 open wound void of skin and 3 small abrasions Neurological: Mental Status: He is alert. Sensory: No sensory deficit. Motor: No weakness. Coordination: Coordination normal. Deep Tendon Reflexes: Reflexes normal. {ASSESSMENT/PLAN: 1. Dog bite, initial encounter - ICD9: 879.8, E906.0, ICD10: W54.0XXA (primary diagnosis) Wound not sutureable - TDAP VACCINE, AGE 7+ YR (ADACEL, BOOSTRIX) - CEPHALEXIN 500 MG CAPSULE - MUPIROCIN 2 % TOPICAL OINTMENT 2. Arm wound, left, initial encounter - ICD9: 884.0, ICD10: S41.102A Return here as needed - TDAP VACCINE, AGE 7+ YR (ADACEL, BOOSTRIX) - CEPHALEXIN 500 MG CAPSULE - MUPIROCIN 2 % TOPICAL OINTMENT Melva Abdul MD History and Record Review Clinical information obtained from an independent historian. History obtained from or confirmed by: friend. Differential Diagnoses - dog bite is more likely for the following reason(s): suggested by HANDP Disposition The patient was discharged. Procedures [facility] History of Present illness Narrative 04-09-2025 Melva Abdul MD - 04/09/2025 1:45 PM EDT Note Date & Type Note Facility 04-09-2025 History of Presen t illness Narrative [facility] Tushar Marcus is a 29 year old male. Patient presents with: dog bite to left shoulder: X 1 day-brothers dog Pt here with 1 day hx of a dog bite to his left upper arm now open wound wants evaluated also needs a tetanus booster Review of Systems Constitutional: Negative for chills, fatigue and fever. Musculoskeletal: Negative for arthralgias and myalgias. Skin: Positive for wound. Neurological: Negative for weakness and numbness. Objective BP 118/64 Pulse 64 Temp 36.8 C (98.3 F) (Tympanic) Resp 16 Wt 57.9 kg (127 lb 10.3 oz) SpO2 100% Physical Exam Vitals and nursing note reviewed. Constitutional: Appearance: Normal appearance. He is not ill-appearing. Cardiovascular: Pulses: Normal pulses. Musculoskeletal: General: No deformity. Normal range of motion. Skin: Findings: No bruising or erythema. Comments: Left deltoid area: 1 open wound void of skin and 3 small abrasions Neurological: Mental Status: He is alert. Sensory: No sensory deficit. Motor: No weakness. Coordination: Coordination normal. Deep Tendon Reflexes: Reflexes normal. {ASSESSMENT/PLAN: 1. Dog bite, initial encounter - ICD9: 879.8, E906.0, ICD10: W54.0XXA (primary diagnosis) Wound not sutureable - TDAP VACCINE, AGE 7+ YR (ADACEL, BOOSTRIX) - CEPHALEXIN 500 MG CAPSULE - MUPIROCIN 2 % TOPICAL OINTMENT 2. Arm wound, left, initial encounter - ICD9: 884.0, ICD10: S41.102A Return here as needed - TDAP VACCINE, AGE 7+ YR (ADACEL, BOOSTRIX) - CEPHALEXIN 500 MG CAPSULE - MUPIROCIN 2 % TOPICAL OINTMENT Melva Abdul MD History and Record Review Clinical information obtained from an independent historian. History obtained from or confirmed by: friend. Differential Diagnoses - dog bite is more likely for the following reason(s): suggested by H&P Disposition The patient was discharged. Procedures documented in this encounter [facility] Instructions 04-09-2025 Patient Instructions Note Date & Type Note Facility 04-09-2025 Instructions Melva Abdul MD - 04/09/2025 1:45 PM EDT Animal Bite You have been treated for an animal bite. The animal that bit you IS VERY UNLIKELY to give you rabies. Treatment begins with fully cleansing the wound. Stitches sometimes go in areas where a large scar is a cosmetic problem. This could be the face, for example. If your wounds are sutured, your risk of infection may be higher. The doctor may choose to close the wound. This is often because the cosmetic problems are worth the higher infection risk. Antibiotics are not generally proven to prevent infection. However, in some cases, your doctor may decide to give you antibiotics. This depends on the type of animal and where the bite is. It also depends on whether the wound is being sutured (stitched). One concern with an animal bite is infection. Symptoms of infection include redness and increasing pain. They also include pus or discharge and swelling. Fever (temperature higher than 100.4 F / 38 C) may also be present. Follow up with your doctor, return here or go to the nearest Emergency Department in 2-3 days for a wound re-check. YOU SHOULD SEEK MEDICAL ATTENTION IMMEDIATELY, EITHER HERE OR AT THE NEAREST EMERGENCY DEPARTMENT, IF ANY OF THE FOLLOWING OCCURS: Redness, pain, pus or swelling. Warmth of the area around the bite. Red streaks, fever (temperature higher than 100.4 F / 38 C) or any other signs of infection. For any other new symptoms or concerns. For pain that gets worse or is not controlled by pain medicine. documented in this encounter [facility] Evaluation note Note Date & Type Note Facility Evaluation note No assessment information availa ble [facility] Work Phone: Evaluation note Note Date & Type Note Facility Evaluation note Diagnosis Dog bite, initial encounter- Primary Arm wound, left, initial encounter documented in this encounter [facility] Reason for referral (narrative) Note Date & Type Note Facility Reason for referral (narrative) No reason for referral information available [facility] Work Phone: Summary Purpose Family History No Family History Records FoundNo Family History Records FoundNo Family History Records Found Advance Directives No Advanced Directives Records Found Advance Directive Response Recorded Date/ Time Living Will No December 26, 2021 3:45pm Power of Jackhammer Operator No December 26 3:45pm Chief Complaint and Reason for Visit Chief Complaint RIGHT HAND PAIN Chief Complaint Admit Date bite April 09, 2025 12: 51pm Additional Source Comments (unrecognized sect ion and content) No Status Records FoundNo Status Records FoundNo Status Records Found INFORMATION SOURCE (unrecogn ized section and content) DATE CREATED AUTHOR 07/31/2019 [facility] ([place]) DATE CREATED AUTHOR AUTHOR'S ORGANIZ ATION 04/10/2025 [facility] DATE CREATED AUTHOR AUTHOR'S ORGANIZ ATION 04/16/2025 [facility] Goals (unrecognized section and content) Goals may be documented in a n alternate sectionGoals may be documented in an alternate section Care Teams (unrecognized sec tion and content) Team Status: Active Member Role/Relationship Status Dates No Primary Care Physician Primary Care Provider Active Team Status: Inactive Member Role/Relationship Status Dates No Primary Care Physician Primary Care Provider Active Start: April 09, 2025 End: April 09, 2025 Ed Physician Provider Emergency Provider Active Start: April 09, 2025 End: April 09, 2025 Source Comments (unrecognize d section and content) In the event this informatio n is protected by the Federal Confidentiality of Alcohol and Drug Abuse Patient Records regulations: The Federal rules restrict any use of the information to criminally investigate or prosecute any alcohol or drug abuse patient.[facility] Reason for Visit (unrecogniz ed section and content) Reason Comments dog bite to left shoulder X 1 day-brothe rs dog FOR RECORDS PERTAINING TO PATIENTS WHO ARE [...] BE BASED ON THE PRIMARY CLINICAL RECORDS. [employer] [facility]. provides no warranty or guarantee of the accuracy or completeness of information in this document.
[2025-09-06 11:52] LABS: Hematocrit 40.0 % (40-54); Hemoglobin 13.1 g/dL (13.0-16.5); Immature Granulocytes Count 0.020 X10^3/uL (0.0-0.0); Mean Corp Hgb Conc 32.8 g/dL (32-36); Mean Corpuscular Volume 73.9 fL (80-94); Mean Platelet Vol. 10.3 fl (6.2-12.0); NRBC Flagged by Analyzer 0 % (0-5); POSITIVE DIFFERENTIAL YES; POSITIVE MORPHOLOGY YES; Platelet Count 128 K/mm3 (150-450); RBC Distribution Width CV 14.2 % (11.6-14.6); RBC Distribution Width SD 37.7 fl (35.1-43.9); Red Blood Count 5.41 M/mm3 (4.6-6.2); White Blood Count 7.5 K/mm3 (4.4-11.0)
[2025-09-06 12:25] LABS: Differential Indicated SCAN CRITERIA MET
[2025-09-06 12:27] LABS: AST(SGOT) 25 U/L (<=37); Alanine Aminotransfer ALT/SGPT 20 U/L (<=46); Albumin, Serum 4.3 g/dL (3.5-5.0); Alkaline Phosphatase 65 U/L (40-129); Anion Gap 11 (7-18); BUN 14 mg/dL (4-19); BUN/Creat Ratio 13.9 RATIO (10-20); Calcium,Total 9.1 mg/dL (7.6-11.0); Carbon Dioxide 25.0 mmol/L (20.0-29.0); Chloride 101 mmol/L (96-106); Estimated Creatinine Clearance 88.01 ml/min (50-250); Globulin 2.8 g/dL (2.2-4.2); Glucose 110 mg/dL (70-99); Potassium 3.8 mmol/L (3.5-5.1)
[2025-09-06 12:44] VITALS: BP 121/87; PULSE 78; RESP 16; O2SAT 98
--- NOTE | 2025-09-06 13:17 | CM.ED ---
Social work Reason for referral: no PCP/no insurance Referral source: case find SW noticed that patient had no PCP or insurance. Patient sleeping upon SW first attempt to enter patient's room. SW placed resources of [facility] Provider Directory and Ines Clark information, as well as how to apply for Medicaid information, along with patient's discharge paperwork for RN to provide patient. Stephanie Vaughn, [employer]PER[employer]OR [employer], RECORDS TECH
[2025-09-06 13:38] VITALS: BP 125/75; PULSE 75; RESP 16; TEMP 36.7; O2SAT 97
== END 2025-09-06 13:38 | disposition home or self-care (01) ==
PROVIDERS: Emergency Provider Emergency Medicine; Visit Provider Emergency Medicine
DX: J10.1 Influenza due to other identified influenza virus with other respiratory manifestations (principal); R11.2 Nausea with vomiting, unspecified; R06.6 Hiccough
CPT/HCPCS: 71045; 80053; 85025; 96361; 96374; 96376; 99283; J2405